=== PATIENT | male | born 1965 | race Caucasian/White ===

== ENCOUNTER 2021-05-02 00:21 | Day surgery (SDC) | payer SELFPAY | END 2021-05-02 22:58 | disposition home or self-care (01) | LOC: WOUND 00:21 | DX: L89.892 Pressure ulcer of other site, stage 2 (principal); L03.031 Cellulitis of right toe; G62.9 Polyneuropathy, unspecified; I70.213 Atherosclerosis of native arteries of extremities with intermittent claudication, bilateral legs; I10 Essential (primary) hypertension; Z86.718 Personal history of other venous thrombosis and embolism | CPT/HCPCS: G0463 ==

== ENCOUNTER 2021-05-12 04:11 | Day surgery (SDC) | payer SELFPAY | END 2021-05-12 23:35 | disposition home or self-care (01) | LOC: WOUND 04:11 | DX: L89.892 Pressure ulcer of other site, stage 2 (principal); L03.031 Cellulitis of right toe; I70.213 Atherosclerosis of native arteries of extremities with intermittent claudication, bilateral legs; G62.9 Polyneuropathy, unspecified; M79.671 Pain in right foot | CPT/HCPCS: 73630; A9270; G0463 ==

== ENCOUNTER 2021-05-20 02:26 | Day surgery (SDC) | payer SELFPAY | END 2021-05-20 23:31 | disposition home or self-care (01) | LOC: WOUND 02:26 | DX: L97.509 Non-pressure chronic ulcer of other part of unspecified foot with unspecified severity (principal); I70.213 Atherosclerosis of native arteries of extremities with intermittent claudication, bilateral legs; G62.9 Polyneuropathy, unspecified; L03.031 Cellulitis of right toe | CPT/HCPCS: A9270 ==

== ENCOUNTER 2021-05-26 01:29 | Day surgery (SDC) | payer SELFPAY | END 2021-05-26 23:11 | disposition home or self-care (01) | LOC: WOUND 01:29 | DX: L89.892 Pressure ulcer of other site, stage 2 (principal); L03.031 Cellulitis of right toe; I70.213 Atherosclerosis of native arteries of extremities with intermittent claudication, bilateral legs; G62.9 Polyneuropathy, unspecified; M79.671 Pain in right foot | CPT/HCPCS: A9270 ==

== ENCOUNTER 2021-06-01 02:17 | Day surgery (SDC) | payer SELFPAY | END 2021-06-01 23:51 | disposition home or self-care (01) | LOC: WOUND 02:17 | DX: L89.892 Pressure ulcer of other site, stage 2 (principal); S91.101A Unspecified open wound of right great toe without damage to nail, initial encounter; L03.031 Cellulitis of right toe; I70.213 Atherosclerosis of native arteries of extremities with intermittent claudication, bilateral legs; G62.9 Polyneuropathy, unspecified; M79.671 Pain in right foot; X58.XXXA Exposure to other specified factors, initial encounter | CPT/HCPCS: A9270; G0463 ==

== ENCOUNTER 2022-06-24 10:31 | Emergency (ER) | payer OTHER ==
[~2022-06-24] VITALS: Ht 177.8 cm; Wt 90.7 kg
[2022-06-24] MEDS ORDERED: Dilaudid 2 mg Ta2 MG PO (13:26)
== END 2022-06-24 13:39 | disposition home or self-care (01) ==
LOC: ER 10:31
DX: S82.64XA Nondisplaced fracture of lateral malleolus of right fibula, initial encounter for closed fracture (principal); W23.1XXA Caught, crushed, jammed, or pinched between stationary objects, initial encounter; Z88.8 Allergy status to other drugs, medicaments and biological substances
CPT/HCPCS: 29505; 73610; 73630; 99283-25; A9270

== ENCOUNTER → 2023-03-02 | Outpatient (CLI) | payer OTHER ==
[~2023-03-02] MED LIST: Dilaudid 2 mg Ta2 MG PO
== END | disposition home or self-care (01) ==
LOC: PLD 14:13 → LAB SHORT 14:13
DX: C44.212 Basal cell carcinoma of skin of right ear and external auricular canal (principal)
CPT/HCPCS: 88305

== ENCOUNTER 2024-09-01 16:09 | Emergency (ER) | payer OTHER ==
[~2024-09-01] VITALS: Ht 177.8 cm; Wt 90.7 kg
[2024-09-01 16:36] VITALS: BP 173/85
[2024-09-01 16:59] LABS: BASOPHILS ABSOLUTE AUTO 0.02 K/mm3 (0.00-0.23); BASOPHILS PERCENT AUTO 0 % (0-2); EOSINOPHILS ABSOLUTE AUTO 0.09 K/mm3 (0.00-0.68); EOSINOPHILS PERCENT AUTO 1 % (0-6); Hematocrit 43.3 % (37.0-53.0); Hemoglobin 14.5 g/dL (13.5-17.5); IMMATURE GRAN ABSOLUTE AUTO 0.02 K/mm3 (0.00-0.10); IMMATURE GRAN PERCENT AUTO 0 % (0-1); LYMPHOCYTES ABSOLUTE AUTO 1.72 K/mm3 (0.84-5.20); LYMPHOCYTES PERCENT AUTO 18 % (21-46); MONOCYTES ABSOLUTE AUTO 0.93 K/mm3 (0.16-1.47); MONOCYTES PERCENT AUTO 10 % (4-13); Mean Corpuscular HGB 29.4 pg (26.0-34.0); Mean Corpuscular HGB Conc 33.5 g/dL (31.5-36.5); Mean Corpuscular Volume 88 fL (80-100); Mean Platelet Volume 9.5 fL (9.1-12.4); NEUTROPHILS ABSOLUTE AUTO 6.81 K/mm3 (1.96-9.15); NEUTROPHILS PERCENT AUTO 71 % (41-73); Platelet Count 175 K/mm3 (150-400); RDW Standard Deviation 44.7 fL (35.1-46.3); Red Blood Cell Count 4.94 M/mm3 (4.30-5.90); White Blood Cell Count 9.59 K/mm3 (4.00-11.30)
[2024-09-01 17:17] LABS: Albumin, Blood 3.5 g/dL (3.4-5.0); Albumin/Globulin Ratio 0.9 (0.8-1.8); Bilirubin, Total 0.9 mg/dL (0.1-1.0); Bun/Creatinine Ratio 29.1 (12.0-20.0); Calcium, Blood 9.1 mg/dL (8.5-10.1); Creatinine, Blood 0.65 mg/dL (0.60-1.20); Globulin, Blood 3.7 g/dL (2.2-4.0); Potassium, Blood 4.4 mmol/L (3.5-5.5); Total Protein, Blood 7.2 g/dL (6.4-8.2)
[2024-09-01] MEDS ORDERED: XARELTO20 M1 PO (20:07)
[2024-09-01] MEDS ORDERED: PREGABALIN50 MG PO (20:07)
[2024-09-01] MEDS ORDERED: BACLOFEN10 M4 PO (20:08)
[2024-09-01] MEDS ORDERED: MS Contin15 MG PO (20:08)
[2024-09-01] MEDS ORDERED: Ketorolac Tromethamine 30mg Vial IV ONE (21:35)
[2024-09-01] MEDS ORDERED: Lidocaine 4% 1 Patch TOP ONE (21:35)
[2024-09-01] MEDS ORDERED: FentaNYL Citrate 50 MCG/ML 2 ML Injection IV ONE (21:55)
[2024-09-01] MEDS ORDERED: Robaxin750 MG PO (22:26)
== END 2024-09-01 22:30 | disposition home or self-care (01) ==
LOC: ER 16:09
PROVIDERS: Physician Assistant
DX: M54.2 Cervicalgia (principal); Z88.8 Allergy status to other drugs, medicaments and biological substances; Z79.02 Long term (current) use of antithrombotics/antiplatelets; Z79.899 Other long term (current) drug therapy
CPT/HCPCS: 72040; 80053; 85025; J1885; J3010